=== PATIENT | female | born 2000 | race Two or more races ===

== ENCOUNTER 2025-04-23 10:14 | Emergency (ER) | payer OTHER ==
[~2025-04-23] VITALS: Ht 152.4 cm; Wt 70.3 kg
[2025-04-23 10:15] VITALS: BP 136/64
[2025-04-23] MEDS ORDERED: ACET10DR15 RIGHT EAR (10:31)
[2025-04-23] MEDS ORDERED: NAPR-1009 PO (10:31)
[2025-04-23 11:14] VITALS: BP 136/64; TEMP 97.9; O2SAT 99
== END 2025-04-23 10:56 | disposition home or self-care (01) ==
LOC: ER 10:14
DX: H66.91 Otitis media, unspecified, right ear (principal); Z79.899 Other long term (current) drug therapy
CPT/HCPCS: A4606; A4663